=== PATIENT | male | born 1975 | race Hispanic/Latino ===

== ENCOUNTER 2017-03-24 07:45 | Observation (INO) | payer OTHER ==
[~2017-03-24] VITALS: Ht 177.8 cm; Wt 113.4 kg
--- NOTE | 2017-03-24 08:00 | ED CARDIAC/CP/PALPITATIONS ---
History of Present Illness General Chief Complaint: Chest Pain Stated Complaint: CHEST PAIN Source: patient, family, old records Exam Limitations: no limitations Allergies Coded Allergies: NO KNOWN ALLERGIES (01/12/13) Reconcile Medications Albuterol Sulfate (Proair Hfa) 90 MCG HFA.AER.AD 2 PUF INH Q4-6 PRN PRN asthma (Reported) Aspirin (Aspirin*) 325 MG TABLET 1 TAB PO DAILY headaches (Reported) Atomoxetine HCl (Strattera) 40 MG CAPSULE 1 CAP PO QAM adhd (Reported) Budesonide/Formoterol Fumarate (Symbicort 160-4.5 Mcg Inhaler) 160 MCG-4.5 MCG/ ACTUATION HFA.AER.AD 2 PUF INH BID asthma (Reported) Sildenafil Citrate (Viagra) 100 MG TABLET 1 TAB PO DAILY NEEDED ERECTILE DYSFUNCTION (Reported) 1 hour before sexual activity Verapamil HCl (Verapamil ER) 180 MG CAP24H.PEL 1 TAB PO DAILY HTN (Reported) Triage Note: PT TO ED FOR R SIDED CHEST PAIN AND LEFT ARM TINGLING STARTING THIS MORNING AROUND 0645. PT REPORTS SYMPTOMS HAVE RESOLVED NOW BUT DID HAVE DIZZINESS WHEN EPISODE STARTED. VSS. PT BROUGHTTO ROOM. Triage Nurses Notes Reviewed? yes HPI: is a 42-year-old gentleman with past medical history of hypertension , hx of TIA obstructive sleep apnea, ADD, who presented to the emergency department at [facility] complaining of chest pain, chest discomfort and arm discomfort. Patient states he was in his normal state of health until early this morning when he woke up. While at work the patient initially began to experience right sided arm. This transiently migrated across his chest to his left arm. Pain at its peak was rated at a 7 out of 10 in severity. Described as a dull pain. At the time of our clinical encounter the pain was rated at a 2 out of 10 radiating to the left cheek. The patient denies any fever, chills, nausea, vomiting. Patient reports good medication compliance although states he ran out of his verapamil last evening. 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 His Perla was at the bedside during the clinical encounter. (SHARMILA NEWBY,KAELYN) Vital Signs & Intake/Output Vital Signs & Intake/Output Vital Signs Date Time Temp Pulse Resp B/P B/P Pulse O2 O2 Flow FiO2 Mean Ox Delivery Rate 03/24 1353 98.9 80 18 138/92 96 Room Air 03/24 1223 97.0 78 16 148/74 98 Room Air 03/24 1002 81 18 142/84 95 Room Air 03/24 0912 98.0 80 20 134/85 03/24 0811 97 Room Air 03/24 0758 99.0 93 15 156/95 95 Room Air Room Air Past History Travel History Traveled to [place] past 21 day No Medical History Any Pertinent Medical History? 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 Yes (KAELYN DOLL MD) Review of Systems Review of Systems Constitutional: Denies: chills, diaphoresis, weakness. EENTM: Denies: blurred vision, double vision, visual changes, eye pain. Respiratory: Denies: cough, hemoptysis, orthopnea, short of breath. Cardiovascular: Reports: chest pain. Denies: edema, orthopena, palpitations. GI: Denies: abdominal pain, bloating, constipation, diarrhea, distention, bowel incontinence, melena, nausea. Genitourinary: Denies: discharge, dysuria, frequency, hematuria, hesitation. Musculoskeletal: Denies: back pain, gout, joint pain, joint swelling. Skin: Denies: cysts, change in skin color, change in hair/nails, dryness, erythema, jaundice. (SHARMILA NEWBY,KAELYN) Physical Exam Physical Exam General Appearance: well developed/nourished, no apparent distress, alert, awake Head: atraumatic, normal appearance, active bleeding Eyes: Bilateral: normal appearance, PERRL, EOMI. Ears, Nose, Throat: normal pharynx Neck: normal inspection Respiratory: normal breath sounds, chest non-tender, no respiratory distress Cardiovascular: regular rate/rhythm Gastrointestinal: normal bowel sounds, soft, non-tender Back: normal inspection, normal range of motion Extremities: normal inspection, normal capillary refill Core Measures ACS in differential dx? Yes Severe Sepsis Present: No Septic Shock Present: No (SHARMILA NEWBY,[facility]) Progress Differential Diagnosis: AMI, costochondritis, hyperthyroid, pericarditis, pulmonary embolism Initial ED EKG: normal axis (SHARMILA NEWBY,KAELYN) Plan of Care: Orders Procedure Date/time Status CBC WITHOUT DIFFERENTIAL 03/25 06 Active BASIC ELECTROLYTES PLUS BUN&CR 03/25 0600 Active Heart Healthy Diet 03/24 L Active TROPONIN LEVEL 03/24 2000 Active EKG 03/24 2000 Active Vital Signs 03/24 1613 Active Teach/Educate 03/24 1613 Active Pain Treatment and Response 03/24 1613 Active Nutritional Intake, Monitor 03/24 1613 Active Isolation 03/24 1613 Active Intake & Output 03/24 1613 Active Patient Care Conference 03/24 1613 Active Activity/Ambulation 03/24 1613 Active Vital Signs 03/24 1543 Active Teach/Educate 03/24 1543 Active Pain Treatment and Response 03/24 1543 Active Nutritional Intake, Monitor 03/24 1543 Active Isolation 03/24 1543 Active Intake & Output 03/24 1543 Active Patient Care Conference 03/24 1543 Active Activity/Ambulation 03/24 1543 Active TROPONIN LEVEL 03/24 1400 Complete EKG 03/24 1400 Active Pathway - chart 03/24 1148 Active Lab Add-on Test 03/24 1144 Active Pathway - chart 03/[address] in observation 03/24 1112 Active Code Status 03/24 1112 Active Patient Data 03/24 1110 Active Add-on Test (ER Only) 03/24 0910 Active MAGNESIUM 03/24 0834 Complete LIPID PANEL 03/24 0834 Complete GLYCOSYLATED HGB 03/24 0834 Complete THYROID STIMULATING HORMONE 03/24 0827 Complete TROPONIN LEVEL 03/24 0827 Complete COMPREHENSIVE METABOLIC PANEL 03/24 0827 Complete CBC WITHOUT DIFFERENTIAL 03/24 0827 Complete Intake & Output 03/24 0811 Active EKG 03/24 0748 Active House Staff 03/24 UNK Active VTE Mechanical Prophylaxis 03/24 UNK Active Vital Signs 03/24 UNK Active Telemetry/Song Lyricist 03/24 UNK Active Current Medications Sig/Thom Start time Last Medication Dose Stop Time Status Admin Aspirin Buffered 325 MG DAILY 03/25 1000 AC (Ecotrin) Enoxaparin Sodium 40 MG DAILY 03/25 1000 AC (Lovenox) Verapamil HCl 180 MG DAILY 03/25 1000 AC (Isoptin [id number] Tab (Verapamil Sr)) Budesonide/ 2 PUF BID 03/24 2200 AC Formoterol Fumarate (Symbicort) Atorvastatin Calcium 20 MG 1700 03/24 1700 AC 03/24 (Lipitor) 1646 Acetaminophen 650 MG Q6P PRN 03/24 1200 AC (Tylenol) Acetaminophen 1,000 MG Q6P PRN 03/24 1200 AC (Ofirmev) Morphine Sulfate 2 MG Q4P PRN 03/24 1200 AC (Morphine) Albuterol Sulfate 2 PUF Q4-6 PRN PRN 03/24 1145 AC (Ventolin) Laboratory Tests 03/24/17 1505: Troponin I < 0.01 03/24/17 0834: Anion Gap 13, Estimated GFR > 60, BUN/Creatinine Ratio 24.0, Glucose 94, Hemoglobin A1c 5.8, Calcium 9.7, Magnesium 2.2, Total Bilirubin 0.3, AST 23, ALT 38, Alkaline Phosphatase 109, Troponin I < 0.01, Total Protein 6.8, Albumin 4.2, Globulin 2.6, Albumin/Globulin Ratio 1.6, Triglycerides 169 H, Cholesterol 171, LDL Cholesterol, Calc 97, HDL Cholesterol 41, Cholesterol/HDL Ratio 4, TSH 2.870 , CBC w Diff NO MAN DIFF REQ, RBC 5.31, MCV 86.8, MCH 29.2, RDW 13.9, MPV 9.2, Gran % 73.5, Lymphocytes % 19.8 L, Monocytes % 4.2, Eosinophils % 1.9, Basophils % 0.6, Absolute Granulocytes 6.8 H, Absolute Lymphocytes 1.8, Absolute Monocytes 0.4, Absolute Eosinophils 0.2, Absolute Basophils 0.1, PUBS MCHC 33.6 Departure Departure Disposition: STILL A PATIENT Condition: Stable Clinical Impression Primary Impression: Chest pain, rule out acute myocardial infarction Referrals: PREMA DOMINGUEZ MD (PCP/Family) Departure Forms: Customer Survey General Discharge Information Observation Note Spoke With: SWEETIE NEWBY,LYNNE Physician Advisor Notified: AURELIA NEWBY,CHELSI Sparks Place Patient In: Non-ED OBS Care Area Rationale for Observation: My rational for observation is as follows the patient will need close monitoring including: serial troponins, EKGs, telemetry monitoring overnight as well as a cardiology consult to rule out acute coronary syndrome and other emergent causes of shest pain. Failure to do so may result in worsening of cardiac condition, hemodynamic dynamic instability and potentially . (SHARMILA NEWBY,KAELYN) Resident Co-Sign Statement Statement: ED Attending supervision documentation- [X] I saw and evaluated the patient. I have also reviewed all the pertinent lab results and diagnostic results. I agree with the findings and the plan of care as documented in the Resident's documentation. At the time of my evaluation the patient states that his chest pain is now gone and that his left arm also feels back to normal. He is still having a mild residual left cheek numbness/ tingling. He has already taken 3 aspirin today but he ran out of his blood pressure medication yesterday. I'm concerned about this patient's presentation is consistent with coronary artery disease. We will treat with his usual dose of verapamil and repeat vital signs and treat accordingly. [] I have reviewed the ED Record and agree with the Resident's documentation. [] Additions or exceptions (if any) to the Resident's note and plan are summarized below: [] (CAROLIN NEWBY,MIKE Alva) Critical Care Note Critical Care Note Critical Care Time: non-applicable (SHARMILA NEWBY,KAELYN)
[2017-03-24 09:03] LABS: ABSOLUTE BASOPHIL COUNT 0.1 /CUMM (0.0-0.2); ABSOLUTE EOSINOPHIL COUNT 0.2 /CUMM (0.0-0.7); ABSOLUTE GRANULOCYTE CT 6.8 /CUMM (1.4-6.5); ABSOLUTE LYMPH COUNT 1.8 /CUMM (1.2-3.4); ABSOLUTE MONOCYTE COUNT 0.4 /CUMM (0.10-0.60); BASOPHIL % 0.6 % (0.0-2.0); EOSINOPHIL % 1.9 % (0-5); GRANULOCYTE % 73.5 % (42.2-75.2); HEMATOCRIT 46.1 % (42-52); MEAN CORPUSCULAR HGB 29.2 PG (27.0-31.0); MEAN CORPUSCULAR HGB CONC 33.6 G/DL (33.0-37.0); MEAN CORPUSCULAR VOLUME 86.8 FL (80.0-94.0); MEAN PLATELET VOLUME 9.2 FL (7.4-10.4); PLATELET COUNT 252 /CUMM (130-400); RBC DISTRIBUTION WIDTH 13.9 % (11.5-14.5); RED BLOOD CELL CT 5.31 /CUMM (4.70-6.10); WHITE BLOOD CELL COUNT 9.3 /CUMM (4.8-10.8)
--- NOTE | 2017-03-24 09:39 | RADIOLOGY REPORT ---
EXAMINATION: XR CHEST CLINICAL INFORMATION: Chest pain COMPARISON: None TECHNIQUE: 2 views of the chest were obtained. FINDINGS: No acute finding. There is no evidence for infiltrate or effusion. The heart size is normal. The hilar structures are indistinct but not felt to be pathologically enlarged. There is no effusion. IMPRESSION: No acute process.
[2017-03-24] MEDS ORDERED: VIAGRA100 M1 PO (10:04)
[2017-03-24] MEDS ORDERED: VERAPAMIL ER180 MG PO (10:05)
[2017-03-24] MEDS ORDERED: STRATTERA40 M1 PO ×2 (10:06→11:42)
--- NOTE | 2017-03-24 11:17 | History & Physical ---
KONSTANTIN GAITAN MD 03/24/17 1116: General Information and HPI MD Statement: I have seen and personally examined EMILY RODRIGUEZ and documented this H&P. The patient is a 42 year old M who presented with a patient stated chief complaint of [chest pain]. 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 The patient complained of right-sided chest pain. Which was sudden in onset, 8 on 10 in intensity and deviated and then radiated to the left side and also to the left jaw with slight numbness and tingling on the left side of the face. He also attributed this pain going to the left arm but was not completely sure. The patient pain subsided on its own but the patient was concerned about the presentation and brought himself to the emergency department for further evaluation. Prior coming tp emergency department he took 325 mg of aspirin which she takes on a daily basis The patient had this episode in the past as well in 2011 when he was evaluated at [facility] for a TIA and at that time he had left- sided face numbness and tingling which resolved. At that time the patient had CT MRI and a transthoracic echocardiogram(with a bubble study) done which were all negative for any acute changes. The patient did not receive any nitroglycerin. To be noted that the patient was recently(2 weeks back) was treated for /Tick bite prophylaxis with doxycycline for 2 days and Augmentin for 7 days for bronchitis. 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 Home Services at Home: None Primary Language: Argentine Smoking Status: Never Smoked ETOH Use: occasional use Illicit Drug Use: denies illicit drug use Review of Systems Review of Systems Constitutional: Reports: see HPI. Exam & Diagnostic Data Last 24 Hrs of Vital Signs/I&O Vital Signs Date Time Temp Pulse Resp B/P B/P Pulse O2 O2 Flow FiO2 Mean Ox Delivery Rate 03/24 1002 81 18 142/84 95 Room Air 03/24 0912 98.0 80 20 134/85 03/24 0811 97 Room Air 03/24 0758 99.0 93 15 156/95 95 Room Air Room Air Intake & Output 03/24 1600 03/24 0800 03/24 0000 Intake Total 0 Output Total Balance 0 Intake, Oral 0 Patient 250 lb Weight Weight Reported by Patient Measurement Method Physical Exam General Appearance Alert, Oriented X3, Cooperative Skin No Rashes Neck Supple, No JVD Lymphatic Cervical nl Cardiovascular Regular Rate, Normal S1, Normal S2 Lungs Clear to Auscultation, Normal Air Movement Last 24 Hrs of Labs/Eleno: Laboratory Tests 03/24/17 0834: Anion Gap 13, Estimated GFR > 60, BUN/Creatinine Ratio 24.0, Glucose 94, Calcium 9.7, Magnesium 2.2, Total Bilirubin 0.3, AST 23, ALT 38, Alkaline Phosphatase 109, Troponin I < 0.01, Total Protein 6.8, Albumin 4.2, Globulin 2.6, Albumin/ Globulin Ratio 1.6, TSH 2.870, CBC w Diff NO MAN DIFF REQ, RBC 5.31, MCV 86.8, MCH 29.2, RDW 13.9, MPV 9.2, Gran % 73.5, Lymphocytes % 19.8 L, Monocytes % 4.2 , Eosinophils % 1.9, Basophils % 0.6, Absolute Granulocytes 6.8 H, Absolute Lymphocytes 1.8, Absolute Monocytes 0.4, Absolute Eosinophils 0.2, Absolute Basophils 0.1, PUBS MCHC 33.6 Diagnostic Data EKG Results Normal sinus rhythm Assessment/Plan Assessment: This is a 42-year-old male with a past medical history of hypertension, asthma, ADHD, TIA who presented to the [facility] with right-sided chest pain which migrated to the left side Vitals at the time of admission shows Blood pressure 142/85, respiration rate of 18, pulse rate of 84, saturation of 95% on room air Labs shows Normal WBC, normal hemoglobin and hematocrit, First troponin less than 0.01, slightly elevated BUN/creatinine of 24, EKG shows normal sinus rhythm with no ST depressions T-wave inversions Chest x-ray unremarkable Assessment 1. Atypical chest pain presentation in a young obese male. The patient has significant risk factors for acute coronary syndrome and hence needs to be observed 2. History of hypertension 3. History of asthma 4. History of ADHD 5. History of migraine headaches 6. Recent tick bite status post 2 days therapy with doxycycline, and acute bronchitis treated with 7 days of Augmentin. Plan Admit to telemetry floor for 23 our observation Serial troponins and EKG and to the peak Patient already received aspirin therapy 325 mg, but the patient needs to be started on a moderate dose statin therapy as per the new guidelines We will check lipid panel and HbA1c Transthoracic echocardiogram(patient's previous echocardiogram was in 2011 which was performed with a bubble study and the results were reviewed in the Epic records which did not show any valvular abnormality and showed an ejection fraction of 60-65%) Cardiology consult(the patient was asked by his primary care physician Dr. Romero to set an appointment with Dr. Patrick Ryder which he is yet to make) Continue with verapamil for blood pressure control but we should consider switching to an MAEGAN inhibitor or ARB Telemetry monitoring Need outpatinet stress test. Patient is full code DVT prophylaxis with subcutaneous Lovenox As Ranked By This Provider Problem List: 1. R/O TIA 2. Acute coronary insufficiency Core Measures/Miscellaneous Acute Coronary Syndrome ACS Diagnosis: No Cerebrovascular Accident CVA/TIA Diagnosis: No Congestive Heart Failure CHF Diagnosis: No Venous Thromboembolism VTE Risk Factors: Acute medical illness, Age > 40 No [facility] VTE prophylaxis d/t: VTE low risk, No contraindications No VTE Pharm Prophylaxis d/t: No contraindications VTE Diagnosis: No VTE Type: NONE VTE Confirmed by (Test): NONE Severe Sepsis Severe Sepsis Present: No Septic Shock Septic Shock Present: No Miscellaneous Documentation Attending Case Discussed With: DR pope Primary Care Physician: PREMA DOMINGUEZ MD Patient sees these Specialists none Level of Patient Care: Telemetry WESLY POPE MD 03/24/17 2508: General Information and HPI Allergies/Medications Home Med list Albuterol Sulfate (Proair Hfa) 90 MCG HFA.AER.AD 2 PUF INH Q4-6 PRN PRN asthma (Reported) Aspirin (Aspirin*) 325 MG TABLET 1 TAB PO DAILY headaches (Reported) Atomoxetine HCl (Strattera) 40 MG CAPSULE 1 CAP PO QAM adhd (Reported) Atorvastatin Calcium 20 MG TABLET 20 MG PO 1700 HEART Budesonide/Formoterol Fumarate (Symbicort 160-4.5 Mcg Inhaler) 160 MCG-4.5 MCG/ ACTUATION HFA.AER.AD 2 PUF INH BID asthma (Reported) Sildenafil Citrate (Viagra) 100 MG TABLET 1 TAB PO DAILY NEEDED ERECTILE DYSFUNCTION (Reported) 1 hour before sexual activity Verapamil HCl (Verapamil ER) 180 MG CAP24H.PEL 1 TAB PO DAILY HTN (Reported) Attending MD Review Statement Attending Statement Attending MD Statement: examined this patient, discuss w/resident/PA/WIRE TWISTER, agreed w/resident/PA/WIRE TWISTER, discussed with family, reviewed EMR data (avail), reviewed images, amended to note Attending Assessment/Plan: The patient is a 42 yo male with h/o ?TIA in 2011 (had negative w/u in [place] - seen by Dr. Arevalo, sent home on ASA), essential HTN, ADD, and sleep apnea who presented in the [facility] with c/o left precordial chest pain 7/10 in severity at rest. He denied any h/o exertional pain. Pain radiated to left neck. Pain was noted after waking up this morning. Also noted some tingling sensation in his left arm. 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 Jane). He has been taking his ASA and other meds (ran out of Verapamil last pm). Symptoms resolved prior to arriving in ED. ECG was normal and troponin negative in ED. Physical Exam: VS: T 99, P 93, R 15, BP 156/95-142-84, PO 97% RA HEENT: eyes- PERRLA, EOMI mis- moist mucosa, no lesions Neck: no JVD or bruits Chest: clear- ? some discomfort on deep palpation left costal cartilage (also noted with ECHO probe) Cor: RRR, nl S1, S2 w/o murm Abd: BS+, soft, NT, - HSM Ext: no edema, pulses 2+ Neuro: alert & oriented x 3, non-focal Labs/Tests- as above. Impression/Plan: #Precordial Chest Pain- patient with some risk factors (sex, age, HTN, ?h/o TIA) . Pain is atypical and EKG and initial troponin I negative. There does appear to be some tenderness of the left costal cartilage on palpation (also patient noted this when ECHO probe was on his chest). Suspect musculoskeletal. Plan: Will bring in as Observation patient to telemetry floor. Check serial troponin levels. ECHO Cardiology consult (Dr. Jane's group). Most likely will need OP stress test. #Essential HTN- BP slightly elevated as above. Patient ran out of Verapamil. Plan: Continue Verapamil. #h/o ?TIA- appears work up was negative, however this has been propagated in chart. Has been on Aspirin, however no statin. Plan: Will need to check with Neurology if they felt TIA was definite (Dr. Arevalo) . Starting low dose statin pending cardiology evaluation. Continue ASA. #ADD- on Strattera. Plan: Will hold at present. #Erectile Dysfunction- on Viagra. Not taken prior to this. Plan: Hold Viagra at present while cardiac workup in progress as may need NTG.
[2017-03-24] MEDS ORDERED: PROAIR HFA8.5 GM INH (11:41)
[2017-03-24] MEDS ORDERED: SYMBICORT 16010.2 GM INH (11:41)
[2017-03-24] MEDS ORDERED: ASPIRIN325 M2 PO (11:45)
[2017-03-24 13:53] VITALS: BP 138/92
--- NOTE | 2017-03-24 14:01 | Admission Certification ---
Admission Certification Certification Statement - As attending physician, I certify that at the time of - admission, based on clinical presentation, severity of - symptoms, need for further diagnostic testing and - therapeutic interventions, and risk of adverse outcomes - without in-hospital treatment, in my clinical assessment, - this patient requires an acute hospital stay for a minimum - of two nights or longer. I have also considered psychsocial - factors such as support system, advanced age, financial - issues, cognitive issues, and failed out-patient treatments, - past re-admission history, safety of patient, and lack of - compliance as applicable. Specific rationale supporting this admission is: Patient being brought in for chest pain under Observation on telemetry. Will check serial troponin I levels, observe for chest pain, EKG with chest pain, cardiology consult.
--- NOTE | 2017-03-24 20:12 | ECHOCARDIOGRAM REPORT ---
EMILY RODRIGUEZ Age: 42 : 1975 Gender: M Exam Date: 03/24/2017 12:30 Exam Location: ER Ht (in): 70 Wt (lb): 250 BSA: 2.41 BP: 142 / 84 Ordering Physician: KONSTANTIN GAITAN MD Referring Physician: KONSTANTIN GAITAN MD Technologist: Jeffrey Loera RDCS Room Number: 7 Indications: CHEST PAIN Rhythm: Sinus Technical Quality: fair FINDINGS Left Ventricle Normal global left ventricular size, wall thickness, systolic function with no obvious regional wall motion abnormalities. Normal left ventricular ejection fraction estimated at 60-65%. Right Ventricle Normal right ventricular size and function. Right Atrium Normal right atrial size. Left Atrium Left atrial size at the upper limits of normal. Mitral Valve Mitral valve normal in structure and function. Trace mitral regurgitation. Aortic Valve Aortic valve is normal in structure and function. Tricuspid Valve Tricuspid valve is normal in structure and function. Trace tricuspid regurgitation. Pulmonic Valve Pulmonic valve not well visualized, grossly normal. Pericardium No pericardial effusion. Great Vessels Normal size aortic root. CONCLUSIONS Normal left and right ventricular systolic function. No significant valvular abnormalities noted. Patrick Jane M.D. (Electronically Signed) Final Date: 24 Mar 2017 20:11 MEASUREMENTS (Male / Female) Normal Values 2D ECHO LV Diastolic Diameter PLAX 4.5 cm 4.2 - 5.9 / 3.9 - 5.3 cm LV Systolic Diameter PLAX 2.7 cm 2.1 - 4.0 cm LV Fractional Shortening PLAX 40.0 % 25 - 46 % LV Ejection Fraction 2D Teich 70.8 % IVS Diastolic Thickness 0.9 cm LVPW Diastolic Thickness 1.1 cm LV Relative Wall Thickness 0.4 RV Internal Dim ED PLAX 2.5 cm 1.9 - 3.8 cm LVOT Diameter 1.9 cm Aortic Root Diameter 2.7 cm LA Systolic Diameter LX 3.9 cm 3.0 - 4.0 / 2.7 - 3.8 cm LA Volume 36.0 cm 18 - 58 / 22 - 52 cm Ascending Aorta Diameter 2.8 cm DOPPLER AV Peak Velocity 134.0 cm/s AV Peak Gradient 7.2 mmHg AV Mean Velocity 94.4 cm/s AV Mean Gradient 4.0 mmHg AV Velocity Time Integral 29.3 cm LVOT Peak Velocity 144.0 cm/s LVOT Peak Gradient 8.3 mmHg LVOT Mean Velocity 85.8 cm/s LVOT Mean Gradient 4.0 mmHg LVOT Velocity Time Integral 28.6 cm LVOT Stroke Volume 81.1 cm AV Area Cont Eq vti 2.8 cm AV Area Cont Eq pk 3.0 cm MV Peak Velocity 85.5 cm/s MV Peak Gradient 2.9 mmHg MV Mean Velocity 53.0 cm/s MV Mean Gradient 1.0 mmHg Mitral E Point Velocity 72.1 cm/s Mitral A Point Velocity 56.8 cm/s Mitral E to A Ratio 1.3 MV PHT Velocity 86.9 cm/s MV Deceleration Martin 419.0 cm/s MV Pressure Half Time 62.2 ms MV Area PHT 3.5 cm MV Deceleration Time 169.0 ms TR Peak Velocity 200.0 cm/s TR Peak Gradient 16.0 mmHg Right Atrial Pressure 10.0 mmHg Pulmonary Artery Systolic Pressu 26.0 mmHg Right Ventricular Systolic Press 26.0 mmHg PV Peak Velocity 97.9 cm/s PV Peak Gradient 3.8 mmHg PV Mean Velocity 72.2 cm/s PV Mean Gradient 2.0 mmHg PV Velocity Time Integral 24.0 cm LV E' Lateral Velocity 12.8 cm/s Mitral E to LV E' Lateral Ratio 5.6 LV E' Septal Velocity 10.4 cm/s Mitral E to LV E' Septal Ratio 6.9
[2017-03-24 22:00] VITALS: BP 126/70
--- NOTE | 2017-03-25 06:05 | PN- Housestaff ---
See Addendum Subjective Follow-up For: Atypical chest pain Tele-Events Since Last Visit: NSR Subjective: Patient seen and examined at bedside. He offers no complaints on interview. Chest pain has resolved since last night. Reports 0 pain currently. Denies dyspnea, palpitations, lightheadedness, dizziness, abdominal pain, n/v/c/d. No acute events reported overnight. Review of Systems Constitutional: Reports: see HPI. Objective Last 24 Hrs of Vital Signs/I&O Vital Signs Date Time Temp Pulse Resp B/P B/P Pulse O2 O2 Flow FiO2 Mean Ox Delivery Rate 03/25 812 97.7 67 18 124/84 97 Room Air 03/24 2200 97.0 63 20 126/70 97 Room Air 03/24 1353 98.9 80 18 138/92 96 Room Air 03/24 1223 97.0 78 16 148/74 98 Room Air 03/24 1002 81 18 142/84 95 Room Air 03/24 0912 98.0 80 20 134/85 Intake & Output 03/25 1600 03/25 0800 03/25 0000 Intake Total 100 200 Output Total Balance 100 200 Intake, Oral 100 200 Patient 113.398 kg Weight Physical Exam General Appearance: Alert, Oriented X3, Cooperative, No Acute Distress Other Physical Findings: Skin No Rashes Neck Supple, No JVD Lymphatic Cervical nl Cardiovascular Regular Rate, Normal S1, Normal S2 Lungs Clear to Auscultation, Normal Air Movement Current Medications: Current Medications Sig/Thom Start time Last Medication Dose Route Stop Time Status Admin Acetaminophen 650 MG Q6P PRN 03/24 1200 AC PO Acetaminophen 1,000 MG Q6P PRN 03/24 1200 AC IV Albuterol Sulfate 2 PUF Q4-6 PRN PRN 03/24 1145 AC INH Aspirin 0 .STK-MED ONE 03/24 0854 DC PO Aspirin 81 MG ONCE ONE 03/24 0845 DC 03/24 PO 03/24 0846 0850 Aspirin Buffered 325 MG DAILY 03/25 1000 AC PO Atorvastatin Calcium 20 MG 1700 03/24 1700 AC 03/24 PO 1646 Budesonide/ 2 PUF BID 03/24 2200 AC 03/24 Formoterol Fumarate INH 2025 Enoxaparin Sodium 40 MG DAILY 03/25 1000 AC SC Morphine Sulfate 2 MG Q4P PRN 03/24 1200 AC IV Verapamil HCl 180 MG DAILY 03/25 1000 AC PO Verapamil HCl 180 MG ONCE ONE 03/24 0900 DC 03/24 PO 03/24 09 0912 Last 24 Hrs of Lab/Eleno Results Last 24 Hrs of Labs/Mics: Laboratory Tests 03/25/17 0645: Anion Gap 9, Estimated GFR > 60, BUN/Creatinine Ratio 17.5, CBC w Diff NO MAN DIFF REQ, RBC 5.54, MCV 87.6, MCH 29.2, RDW 14.4, MPV 9.1, Gran % 75.2, Lymphocytes % 17.2 L, Monocytes % 5.2, Eosinophils % 1.7, Basophils % 0.7, Absolute Granulocytes 8.0 H, Absolute Lymphocytes 1.8, Absolute Monocytes 0.6, Absolute Eosinophils 0.2, Absolute Basophils 0.1, PUBS MCHC 33.3 03/24/17 2019: Troponin I < 0.01 03/24/17 1505: Troponin I < 0.01 Assessment/Plan Assessment: This is a 42-year-old male with a past medical history of hypertension, asthma, ADHD, TIA who presented with right-sided chest pain which migrated to the left side. Patient was observed on telemetery unit where the following problems were managed: # Atypical chest pain - RESOLVED Most likely noncardiac. ACS ruled out with negative serial troponins and EKGs. * Follow echocardiogram - unremarkable * Follow lipid panel - WNL * Follow HbA1C - 5.8 (pre-diabetic) - provide counseling on lifestyle modifications * Cont ASA 325mg PO and Lipitor 20mg PO daily pending cardio recs * Adequate pain control * Cardiology consulted, follow recs (Dr. Jane's group) * May need outpatient stress test. # History of hypertension * Cont home med verapamil # History of asthma and ADHD * Cont home meds # ADDH * Hold home med Strattera for now - Heart healthy diet - Mild pain pathway - DVTppx with Lovenox - Full code Problem List: 1. Chest pain, rule out acute myocardial infarction 2. Asthma 3. ADH disorder 4. HTN (hypertension) Pain Ratin Pain Location: 0 Pain Goal: Remain pain free Pain Plan: Mild pathway Tomorrow's Labs & Rationales: None Tomorrow's Labs & Rationales: None
[2017-03-25 08:12] VITALS: BP 124/84
[2017-03-25 08:12] LABS: ABSOLUTE BASOPHIL COUNT 0.1 /CUMM (0.0-0.2); ABSOLUTE EOSINOPHIL COUNT 0.2 /CUMM (0.0-0.7); ABSOLUTE LYMPH COUNT 1.8 /CUMM (1.2-3.4); ABSOLUTE MONOCYTE COUNT 0.6 /CUMM (0.10-0.60); BASOPHIL % 0.7 % (0.0-2.0); EOSINOPHIL % 1.7 % (0-5); GRANULOCYTE % 75.2 % (42.2-75.2); HEMATOCRIT 48.5 % (42-52); MEAN CORPUSCULAR HGB 29.2 PG (27.0-31.0); MEAN CORPUSCULAR HGB CONC 33.3 G/DL (33.0-37.0); MEAN CORPUSCULAR VOLUME 87.6 FL (80.0-94.0); MEAN PLATELET VOLUME 9.1 FL (7.4-10.4); PLATELET COUNT 245 /CUMM (130-400); RBC DISTRIBUTION WIDTH 14.4 % (11.5-14.5); RED BLOOD CELL CT 5.54 /CUMM (4.70-6.10); WHITE BLOOD CELL COUNT 10.7 /CUMM (4.8-10.8)
--- NOTE | 2017-03-25 08:37 | Patient Discharge Instructions ---
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 Root within a week of discharge. You will need an appointment for a stress test. Diet Continue normal diet: Yes Activity Full Activity/No Limits: Yes Acute Coronary Syndrome Inclusion Criteria At DC or during hospital stay patient has or had the following: ACS DIAGNOSIS No Discharge Core Measures Meds if any: Prescribed or Continued at Discharge Meds if any: NOT Prescribed or Continued at Discharge Congestive Heart Failure Inclusion Criteria At DC or during hospital stay patient has or had the following: CHF DIAGNOSIS No Discharge Core Measures Meds if any: Prescribed or Continued at Discharge Meds if any: NOT Prescribed or Continued at Discharge Cerebrovascular accident Inclusion Criteria At DC or during hospital stay patient has or had the following: CVA/TIA Diagnosis No Discharge Core Measures Meds if any: Prescribed or Continued at Discharge Meds if any: NOT Prescribed or Continued at Discharge Venous thromboembolism Inclusion Criteria VTE Diagnosis No VTE Type NONE VTE Confirmed by (Test) NONE Discharge Core Measures - Per Current guidelines, there needs to be overlap - treatment for the first 5 days of Warfarin therapy. - If discharged on Warfarin prior to 5 days of - overlap therapy, the patient will need to be - assessed for post discharge needs including - *Post discharge parental anticoagulation - *Warfarin and/or parental anticoagulation education - *Follow up date to check INR post discharge At least 5 days overlap therapy as Inpatient No Meds if any: Prescribed or Continued at Discharge Note: Overlap Therapy is Warfarin and Anticoagulant Meds if any: NOT Prescribed or Continued at Discharge
[2017-03-25 08:56] VITALS: BP 124/84
[2017-03-25] MEDS ORDERED: ATORVASTATIN CA20 M1 PO ×2 (10:41→10:47)
--- NOTE | 2017-03-25 11:46 | Cons- Cardiology ---
General Information and HPI Consulting Request Date of Consult: 03/25/17 Requested By: WESLY POPE MD Reason for Consult: Chest pain Source of Information: patient History of Present Illness: This is a 42-year-old male with a reported past medical history of ADHD, hypertension, asthma, and a TIA in 2011 without recurrence who presents to [facility] with a chief complaint of low to moderate intensity chest discomfort which occurred at rest. The discomfort started on the right chest and then moved across to the left chest and arm without radiation to his jaw or back. He denied nausea, diaphoresis, or shortness of breath. The symptoms resolved spontaneously and have not recurred. There was no exertional component. Prior to this isolated episode the patient was at his usual state of health with good exertional tolerance. On my interview with the patient and his hospital room he was currently asymptomatic. Allergies/Medications Allergies: Coded Allergies: NO KNOWN ALLERGIES (01/12/13) Home Med List: Albuterol Sulfate (Proair Hfa) 90 MCG HFA.AER.AD 2 PUF INH Q4-6 PRN PRN asthma (Reported) Aspirin (Aspirin*) 325 MG TABLET 1 TAB PO DAILY headaches (Reported) Atomoxetine HCl (Strattera) 40 MG CAPSULE 1 CAP PO QAM adhd (Reported) Atorvastatin Calcium 20 MG TABLET 20 MG PO 1700 HEART Budesonide/Formoterol Fumarate (Symbicort 160-4.5 Mcg Inhaler) 160 MCG-4.5 MCG/ ACTUATION HFA.AER.AD 2 PUF INH BID asthma (Reported) Sildenafil Citrate (Viagra) 100 MG TABLET 1 TAB PO DAILY NEEDED ERECTILE DYSFUNCTION (Reported) 1 hour before sexual activity Verapamil HCl (Verapamil ER) 180 MG CAP24H.PEL 1 TAB PO DAILY HTN (Reported) Current Medications: Current Medications Sig/Thom Start time Last Medication Dose Route Stop Time Status Admin Acetaminophen 650 MG Q6P PRN 03/24 1200 DCD PO Acetaminophen 1,000 MG Q6P PRN 03/24 1200 DCD IV Albuterol Sulfate 2 PUF Q4-6 PRN PRN 03/24 1145 DCD INH Aspirin Buffered 325 MG DAILY 03/25 1000 DCD 05/12 PO 0856 Atorvastatin Calcium 20 MG 1700 05/ 1700 DCD 05/11 PO 1646 Budesonide/ 2 PUF BID 03/24 2200 DCD 05/12 Formoterol Fumarate INH 0857 Enoxaparin Sodium 40 MG DAILY 03/25 1000 DCD 03/25 SC 0856 Morphine Sulfate 2 MG Q4P PRN 03/24 1200 DCD IV Verapamil HCl 180 MG DAILY 03/25 1000 DCD 03/25 PO 0856 Review of Systems Review of Systems: Review of systems as per HPI. The remainder of a 10 point review of systems was reviewed and was otherwise negative. 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 Home Services at Home: None Primary Language: Serbian Smoking Status: Never Smoked ETOH Use: occasional use Illicit Drug Use: denies illicit drug use ECHO Results (as available) Date of last Echo 02/17/12 EF% 60 Exam & Diagnostic Data Vital Signs and I&O Vital Signs Date Time Temp Pulse Resp B/P B/P Pulse O2 O2 Flow FiO2 Mean Ox Delivery Rate 03/25 0856 124/84 03/25 0812 97.7 67 18 124/84 97 Room Air 03/24 2200 97.0 63 20 126/70 97 Room Air 03/24 1353 98.9 80 18 138/92 96 Room Air 03/24 1223 97.0 78 16 148/74 98 Room Air Intake & Output 03/25 1600 03/25 0800 03/25 0000 03/24 1600 03/24 0800 03/24 0000 Intake Total 100 200 0 Output Total Balance 100 200 0 Intake, Oral 100 200 0 Patient 250 lb 250 lb 250 lb Weight Weight Reported by Patient Reported by Patient Measurement Method Physical Exam: General: no apparent distress. Alert. Eyes: No obvious scleral icterus. HEENT: No jugular venous distention or abnormal jugular venous pulsations. Cardiovascular: Normal intensity S1/S2. PMI not grossly displaced. Respiratory: Lungs clear to auscultation bilaterally. Abdomen: Soft, nontender with no guarding or rebound tenderness. Musculoskeletal: No clubbing or cyanosis noted Skin: No obvious rashes or ulcerations. Neurologic: No gross focal deficits noted. Lymph: No gross lymphadenopathy. Labs/Eleno Results: Laboratory Tests 03/25 1505 Chemistry Sodium (137 - 145 mmol/L) 140 Potassium (3.5 - 5.1 mmol/L) 4.7 Chloride (98 - 107 mmol/L) 105 Carbon Dioxide (22 - 30 mmol/L) 27 Anion Gap (5 - 16) 9 BUN (9 - 20 mg/dL) 14 Creatinine (0.7 - 1.2 mg/dL) 0.8 Estimated GFR (>60 ml/min) > 60 BUN/Creatinine Ratio (7 - 25 %) 17.5 Troponin I (<0.11 ng/ml) < 0.01 < 0.01 Hematology CBC w Diff NO MAN DIFF REQ WBC (4.8 - 10.8 /CUMM) 10.7 RBC (4.70 - 6.10 /CUMM) 5.54 Hgb (14.0 - 18.0 G/DL) 16.2 Hct (42 - 52 %) 48.5 MCV (80.0 - 94.0 FL) 87.6 MCH (27.0 - 31.0 PG) 29.2 RDW (11.5 - 14.5 %) 14.4 Plt Count (130 - 400 /CUMM) 245 MPV (7.4 - 10.4 FL) 9.1 Gran % (42.2 - 75.2 %) 75.2 Lymphocytes % (20.5 - 51.1 %) 17.2 L Monocytes % (1.7 - 9.3 %) 5.2 Eosinophils % (0 - 5 %) 1.7 Basophils % (0.0 - 2.0 %) 0.7 Absolute Granulocytes (1.4 - 6.5 /CUMM) 8.0 H Absolute Lymphocytes (1.2 - 3.4 /CUMM) 1.8 Absolute Monocytes (0.10 - 0.60 /CUMM) 0.6 Absolute Eosinophils (0.0 - 0.7 /CUMM) 0.2 Absolute Basophils (0.0 - 0.2 /CUMM) 0.1 PUBS MCHC (33.0 - 37.0 G/DL) 33.3 03/24 0834 Chemistry Sodium (137 - 145 mmol/L) 142 Potassium (3.5 - 5.1 mmol/L) 4.5 Chloride (98 - 107 mmol/L) 102 Carbon Dioxide (22 - 30 mmol/L) 27 Anion Gap (5 - 16) 13 BUN (9 - 20 mg/dL) 24 H Creatinine (0.7 - 1.2 mg/dL) 1.0 Estimated GFR (>60 ml/min) > 60 BUN/Creatinine Ratio (7 - 25 %) 24.0 Glucose (65 - 99 mg/dL) 94 Hemoglobin A1c (4.2 - 5.8 %) 5.8 Calcium (8.4 - 10.2 mg/dL) 9.7 Magnesium (1.6 - 2.3 mg/dL) 2.2 Total Bilirubin (0.2 - 1.3 mg/dL) 0.3 AST (17 - 59 U/L) 23 ALT (21 - 72 U/L) 38 Alkaline Phosphatase (< 127 U/L) 109 Troponin I (<0.11 ng/ml) < 0.01 Total Protein (6.3 - 8.2 g/dL) 6.8 Albumin (3.5 - 5.0 g/dL) 4.2 Globulin (1.9 - 4.2 gm/dL) 2.6 Albumin/Globulin Ratio (1.1 - 2.2 %) 1.6 Triglycerides (<150 mg/dL) 169 H Cholesterol (< 200 MG/DL) 171 LDL Cholesterol, Calc (65 - 129 mg/dL) 97 HDL Cholesterol (40 - 60 mg/dL) 41 Cholesterol/HDL Ratio (0.00 - 4.88 %) 4 TSH (0.270 - 4.200 uIU/mL) 2.870 Hematology CBC w Diff NO MAN DIFF REQ WBC (4.8 - 10.8 /CUMM) 9.3 RBC (4.70 - 6.10 /CUMM) 5.31 Hgb (14.0 - 18.0 G/DL) 15.5 Hct (42 - 52 %) 46.1 MCV (80.0 - 94.0 FL) 86.8 MCH (27.0 - 31.0 PG) 29.2 RDW (11.5 - 14.5 %) 13.9 Plt Count (130 - 400 /CUMM) 252 MPV (7.4 - 10.4 FL) 9.2 Gran % (42.2 - 75.2 %) 73.5 Lymphocytes % (20.5 - 51.1 %) 19.8 L Monocytes % (1.7 - 9.3 %) 4.2 Eosinophils % (0 - 5 %) 1.9 Basophils % (0.0 - 2.0 %) 0.6 Absolute Granulocytes (1.4 - 6.5 /CUMM) 6.8 H Absolute Lymphocytes (1.2 - 3.4 /CUMM) 1.8 Absolute Monocytes (0.10 - 0.60 /CUMM) 0.4 Absolute Eosinophils (0.0 - 0.7 /CUMM) 0.2 Absolute Basophils (0.0 - 0.2 /CUMM) 0.1 PUBS MCHC (33.0 - 37.0 G/DL) 33.6 Diagnostic Data EKG Results Tracing was personally reviewed and shows sinus rhythm at 75 bpm with no evidence of infarct CXR Results No pneumonia, CHF, or widened mediastinum Other Results Telemetry tracings were personally reviewed and shows sinus rhythm Echocardiogram CONCLUSIONS Normal left and right ventricular systolic function. No significant valvular abnormalities noted. Patrick Jane M.D. (Electronically Signed) Final Date: 24 Mar 2017 20:11 Assessment/Plan Assessment/Plan 1. Chest discomfort, atypical, now resolved 2. Reported history of prior TIA without recurrence 3. History of hypertension 4. History of ADHD The patient's chest pain was atypical for cardiac etiology and has now resolved. No evidence of arrhythmia on telemetry. Serial troponins are normal and echocardiogram is without regional wall motion abnormality. He is hemodynamically stable. Given his prior history of TIA he should be on daily aspirin and statin therapy. He is currently stable from a cardiac standpoint and we will plan for outpatient stress test after discharge. He should follow-up in my office within 2 weeks of discharge. Case was discussed with the admitting medical team. He is instructed to return to the hospital via 911 immediately with any new or recurrent symptoms. Nader Rao MD [facility] Consult Acknowledgment - Thank you for your consult request.
== END 2017-03-25 11:10 ==
LOC: ERH 07:45 → ERHI 11:12 → ENRESERV 12:12 → 1NO 13:32 → ENPENDDIS 03-25 10:42 → 1NO 03-25 11:10
PROVIDERS: Internal Medicine Nephrology; Student in an Organized Health Care Education/Training Program; ADMIT Internal Medicine
DX: R07.89 Other chest pain (principal); J45.909 Unspecified asthma, uncomplicated; I25.10 Atherosclerotic heart disease of native coronary artery without angina pectoris; I10 Essential (primary) hypertension; Z86.73 Personal history of transient ischemic attack (TIA), and cerebral infarction without residual deficits; G47.33 Obstructive sleep apnea (adult) (pediatric); Z79.82 Long term (current) use of aspirin
CPT/HCPCS: 2000; 6020; 36415; 82436; 93005; 93010; 93306; 96372; G0378; J0131; J1650; J3490